=== PATIENT | male | born 1985 | race Hispanic/Latino ===

== ENCOUNTER 2023-02-10 11:09 | Emergency (ER) | payer SELFPAY ==
[2023-02-10] MEDS ORDERED: Ibuprofen 800 MG TAB ONE (11:52)
[2023-02-10] MEDS ORDERED: Dexamethasone 10 MG/ML VIAL ONE (11:52)
[2023-02-10 12:16] LABS: SARS-CoV-2 NAA Rapid Test Not Detected (NotDetected)
== END 2023-02-10 13:22 | disposition home or self-care (01) ==
LOC: ERS 11:09
DX: J10.1 Influenza due to other identified influenza virus with other respiratory manifestations (principal)
CPT/HCPCS: 87081; 87430; 99283; J1100